=== PATIENT | female | born 1950 | race Asian ===

== ENCOUNTER 2016-09-28 15:18 | Emergency (ER) | payer OTHER ==
[2016-09-28 15:44] VITALS: BP 143/80
== END 2016-09-28 17:42 | disposition home or self-care (01) ==
LOC: ED 15:18
DX: S06.0X9A Concussion with loss of consciousness of unspecified duration, initial encounter (principal); S62.307A Unspecified fracture of fifth metacarpal bone, left hand, initial encounter for closed fracture; I10 Essential (primary) hypertension; S00.81XA Abrasion of other part of head, initial encounter; W18.30XA Fall on same level, unspecified, initial encounter; Y93.89 Activity, other specified; Y99.8 Other external cause status; Y92.89 Other specified places as the place of occurrence of the external cause
CPT/HCPCS: J8597

== ENCOUNTER 2017-09-07 11:28 | Inpatient (IN) | payer OTHER ==
[~2017-09-07] VITALS: Ht 162.6 cm; Wt 67.2 kg
[2017-09-07 12:20] LABS: PLATELET COUNT 324 x10^3mcL (130-400); RED CELL DISTRIBUTION WIDTH 14.5 % (11.5-14.5)
[2017-09-07 12:28] LABS: CALCIUM 9.4 mg/dL (8.5-10.1); CARBON DIOXIDE 25.4 mmol/L (21-32)
[2017-09-07 12:28] LABS: microscopic required? YES; urine erythrocyte TRACE (NEGATIVE)
[2017-09-07 12:38] LABS: BILIRUBIN TOTAL 0.7 mg/dL (0.20-1.00); TOTAL PROTEIN, SERUM 8.2 g/dL (6.4-8.2)
[2017-09-07] MEDS ORDERED: NOR10 PO (15:25)
[2017-09-07] MEDS ORDERED: VITAMIN D32000 I2 PO (15:26)
[2017-09-07] MEDS ORDERED: COZAAR100 MG PO (15:26)
[2017-09-07] MEDS ORDERED: METOPROLOL SUCC25 M2 PO (15:26)
[2017-09-07 16:34] LABS: PHOSPHOROUS 4.4 mg/dL (2.5-4.9)
[2017-09-07 16:37] LABS: CHOLESTEROL/HDL RATIO 3.1; T3 TOTAL 1.01 ng/mL
[2017-09-07 16:42] LABS: FREE T4 1.02 ng/dL (0.76-1.46); FREE THYROXINE INDEX 2.3 ug/dL (1.4-4.5); T4(THYROXINE) 6.1 ug/dL (4.7-13.3)
[2017-09-07 16:57] VITALS: BP 154/78
[2017-09-07 19:06] LABS: IRON 103 ug/dL (50-170); TOTAL IRON BINDING CAPACITY 253 ug/dL (250-450)
[2017-09-07 19:21] LABS: RED BLOOD CELLS 5.13 M/mm3 (4.10-5.10)
[2017-09-07 21:02] VITALS: BP 145/78
[2017-09-08 05:29] VITALS: BP 109/61
[2017-09-08 06:29] LABS: CALCIUM 8.7 mg/dL (8.5-10.1); CHLORIDE SERUM 110 mmol/L (98-107); CREATININE SERUM 0.7 mg/dL (0.6-1.0); GFR1 > 60 mL/min; GLUCOSE SERUM 89 mg/dL (74-106); PHOSPHOROUS 3.9 mg/dL (2.5-4.9); SODIUM SERUM 142 mmol/L (136-145)
[2017-09-08 06:39] LABS: BASOPHIL % 0.6 % (0-2); PLATELET COUNT 290 x10^3mcL (130-400); RED CELL DISTRIBUTION WIDTH 14.4 % (11.5-14.5)
[2017-09-08 06:51] LABS: rbc morphology (normal/abnorm) ABNORMAL (NORMAL)
[2017-09-08 09:35] VITALS: BP 115/69
[2017-09-08 16:43] VITALS: BP 128/70
[2017-09-08 20:37] VITALS: BP 126/71
[2017-09-09 05:49] VITALS: BP 146/72
[2017-09-09 06:34] LABS: CALCIUM 8.9 mg/dL (8.5-10.1); CARBON DIOXIDE 23.5 mmol/L (21-32); CHLORIDE SERUM 109 mmol/L (98-107); CREATININE SERUM 0.6 mg/dL (0.6-1.0); GFR1 > 60 mL/min; GLUCOSE SERUM 88 mg/dL (74-106); PHOSPHOROUS 3.3 mg/dL (2.5-4.9); POTASSIUM SERUM 3.9 mmol/L (3.5-5.1); SODIUM SERUM 143 mmol/L (136-145)
[2017-09-09 06:46] LABS: BASOPHIL % 0.8 % (0-2); PLATELET COUNT 275 x10^3mcL (130-400); RED CELL DISTRIBUTION WIDTH 14.8 % (11.5-14.5)
[2017-09-09] MEDS ORDERED: LEVAQUIN750 MG PO (07:52)
[2017-09-09] MEDS ORDERED: LAC PO (08:30)
[2017-09-09 09:03] VITALS: BP 138/75
[2017-09-09 09:45] VITALS: BP 138/75
[2017-09-09] MEDS ORDERED: MIRALAX17 GM/Dose PO (10:49)
== END 2017-09-09 12:16 | disposition home or self-care (01) | DRG 754 ==
LOC: ED 11:28 → DU 15:52
PROVIDERS: Emergency Medicine Emergency Medical Services; Family Medicine
DX: D39.11 Neoplasm of uncertain behavior of right ovary (principal); N17.0 Acute kidney failure with tubular necrosis; N39.0 Urinary tract infection, site not specified; K56.699 Other intestinal obstruction unspecified as to partial versus complete obstruction; K59.09 Other constipation; J47.9 Bronchiectasis, uncomplicated; M41.86 Other forms of scoliosis, lumbar region; I10 Essential (primary) hypertension; D50.9 Iron deficiency anemia, unspecified
CPT/HCPCS: 82962; 83880; 84439; J0696; J7030; Q0092; Q9967